=== PATIENT | female | born 1960 | race Hispanic/Latino ===

== ENCOUNTER 2018-04-30 08:31 | Day surgery (SDC) | payer BC ==
[2018-04-29 14:59] VITALS: BMI 32.9
[~2018-04-30 08:31] MED LIST: Sodium Chloride 0.9% 1,000 ML IV SCH
[2018-04-30] MEDS ORDERED: Propofol 10 mg/ml Inj (20 ML) ONE (09:21)
[2018-04-30 10:53] VITALS: BP 105/74; PULSE 70; RESP 16; TEMP 97.9; O2SAT 96
== END 2018-04-30 11:13 | disposition home or self-care (01) ==
LOC: ENDO 08:31
PROVIDERS: ATTEND Specialist
DX: Z12.11 Encounter for screening for malignant neoplasm of colon (principal); D12.3 Benign neoplasm of transverse colon; K64.8 Other hemorrhoids; D17.5 Benign lipomatous neoplasm of intra-abdominal organs
CPT/HCPCS: 45385; 88305; J2704; J7030; J7040